=== PATIENT | female | born 1975 | race Two or more races ===

== ENCOUNTER 2017-11-22 14:51 | Emergency (ER) | payer MEDICAID ==
[~2017-11-22] VITALS: Ht 154.9 cm; Wt 72.6 kg
[2017-11-22] MEDS ORDERED: SYNTHROID125 MCG ORAL (15:02)
[2017-11-22 15:08] VITALS: BP 108/74
--- NOTE | 2017-11-22 15:13 | Emergency Room Report ---
History of Present Illness General Chief Complaint: Chest Pain Source: Patient Present Illness HPI Patient presents Complains of chest pain left upper chest Ongoing for the past 5 days Denies any exacerbating or ameliorating conditions Denies any vomiting or diarrhea denies any back or flank pain Patient reports that she had a cough and the flu for about one month however that has also improved Allergies: Coded Allergies: No Known Allergies (Unverified , 11/22/17) Patient History Past Medical History: see triage record Pertinent Family History: none Last Menstrual Period: 11/20/17 Reviewed Nursing Documentation: PMH: Agreed; PSxH: Agreed Nursing Documentation-PMH Past Medical History: No History, Except For Review of Systems All Other Systems: negative except mentioned in HPI Physical Exam Vital Signs Date Time Temp Pulse Resp B/P (MAP) Pulse Ox O2 Delivery O2 Flow Rate FiO2 11/22/17 15:00 98.1 91 18 108/74 95 Room Air 98.1 Sp02 EP Interpretation: reviewed, normal General Appearance: well appearing, no apparent distress Head: normocephalic, atraumatic Eyes: bilateral eye PERRL, bilateral eye EOMI ENT: hearing grossly normal, normal pharynx, TMs + canals normal, uvula midline Neck: full range of motion, supple, no meningismus, no bony tend Respiratory: lungs clear, normal breath sounds, no rhonchi, no respiratory distress, no retraction, no accessory muscle use Cardiovascular #1: normal peripheral pulses, regular rate, rhythm, no edema, no gallop, no JVD, no murmur Gastrointestinal: normal bowel sounds, non tender, soft, no mass, no organomegaly, non-distended, no guarding, no hernia, no pulsatile mass, no rebound Genitourinary: no CVA tenderness Musculoskeletal: normal inspection Neurologic: oriented x3, responsive, elevator supervisor III-XII nml as tested, motor strength/ tone normal, sensory intact Psychiatric: mood/affect normal Skin: normal color, no rash, warm/dry, palpation normal Lymphatic: normal inspection, no adenopathy Medical Decision Making Diagnostic Impression: Primary Impression: Chest pain ER Course Patient is a fairly complex patient with multiple differential to consideration including but not limited to cardiac cardiopulmonary and vascular emergencies Patient's blood work is normal imaging is appropriate EKG was also normal Patient's description and presentation does not sound necessarily cardiac after fairly extensive workup patient appears to be stable for close outpatient follow -up Labs Test 11/22/17 15:10 11/22/17 15:22 Urine HCG, Qualitative Negative (NEGATIVE) White Blood Count 9.1 K/UL (4.8-10.8) Red Blood Count 5.25 M/UL (4.20-5.40) Hemoglobin 12.9 G/DL (12.0-16.0) Hematocrit 38.9 % (37.0-47.0) Mean Corpuscular Volume 74 FL (80-99) Mean Corpuscular Hemoglobin 24.5 PG (27.0-31.0) Mean Corpuscular Hemoglobin Concent 33.1 G/DL (32.0-36.0) Red Cell Distribution Width 14.3 % (11.6-14.8) Platelet Count 544 K/UL (150-450) Mean Platelet Volume 6.4 FL (6.5-10.1) Neutrophils (%) (Auto) 62.8 % (45.0-75.0) Lymphocytes (%) (Auto) 30.6 % (20.0-45.0) Monocytes (%) (Auto) 4.0 % (1.0-10.0) Eosinophils (%) (Auto) 1.7 % (0.0-3.0) Basophils (%) (Auto) 1.0 % (0.0-2.0) Sodium Level 136 MMOL/L (136-145) Potassium Level 3.7 MMOL/L (3.5-5.1) Chloride Level 101 MMOL/L (98-107) Carbon Dioxide Level 29 MMOL/L (21-32) Anion Gap 6 mmol/L (5-15) Blood Urea Nitrogen 19 mg/dL (7-18) Creatinine 1.0 MG/DL (0.55-1.30) Estimat Glomerular Filtration Rate > 60 mL/min (>60) Glucose Level 109 MG/DL (74-106) Calcium Level 9.3 MG/DL (8.5-10.1) Total Bilirubin 0.3 MG/DL (0.2-1.0) Aspartate Amino Transf (AST/SGOT) 29 U/L (15-37) Alanine Aminotransferase (ALT/SGPT) 31 U/L (12-78) Alkaline Phosphatase 108 U/L (46-116) Total Creatine Kinase 322 U/L (26-308) Creatine Kinase MB 2.3 NG/ML (0.0-3.6) Creatine Kinase MB Relative Index 0.7 Troponin I 0.000 ng/mL (0.000-0.056) Total Protein 8.9 G/DL (6.4-8.2) Albumin 4.1 G/DL (3.4-5.0) Globulin 4.8 g/dL Albumin/Globulin Ratio 0.9 (1.0-2.7) Lipase 213 U/L (73-393) EKG Diagnostic Results Rate: normal Rhythm: NSR ST Segments: no acute changes Rhythm Strip Diag. Results EP Interpretation: yes Rate: 60 Rhythm: NSR, no PVC's, no ectopy Chest X-Ray Diagnostic Results Chest X-Ray Diagnostic Results : Chest X-Ray Ordered: Yes # of Views/Limited/Complete: 1 View Indication: Chest Pain EP Interpretation: Yes Interpretation: no consolidation, no effusion, no pneumothorax Impression: No acute disease Electronically Signed by: Cammy Purvis DO Last Vital Signs Date Time Temp Pulse Resp B/P (MAP) Pulse Ox O2 Delivery O2 Flow Rate FiO2 11/22/17 15:08 91 18 Room Air 11/22/17 15:08 98.1 108/74 95 98.1 Status: improved Disposition: HOME, SELF-CARE Condition: Improved Scripts Famotidine (PEPCID) 40 Mg Tablet 40 MG PO DAILY, #7 TAB 0 Refills Prov: Cammy Purvis DO 11/22/17 Additional Instructions: Patient is provided with the discharge instructions notified to follow up with primary doctor in the next 2-3 days otherwise return to the er with any worsening symptoms. Please note that this report is being documented using [employer] technology. This can lead to erroneous entry secondary to incorrect interpretation by the dictating instrument. Cammy Purvis DO Nov 22, 2017 15:13
[2017-11-22 15:41] LABS: EOSINOPHILS % (AUTO) 1.7 % (0.0-3.0); HEMATOCRIT 38.9 % (37.0-47.0); HEMOGLOBIN 12.9 G/DL (12.0-16.0); LYMPHOCYTES % (AUTO) 30.6 % (20.0-45.0); MEAN CORPUSCULAR VOLUME 74 FL (80-99); NEUTROPHILS % (AUTO) 62.8 % (45.0-75.0); PLATELET COUNT 544 K/UL (150-450); RED BLOOD COUNT 5.25 M/UL (4.20-5.40); RED CELL DISTRIBUTION WIDTH 14.3 % (11.6-14.8); WHITE BLOOD COUNT 9.1 K/UL (4.8-10.8)
[2017-11-22 15:47] LABS: ANION GAP 6 mmol/L (5-15); BLOOD UREA NITROGEN 19 mg/dL (7-18); CALCIUM 9.3 MG/DL (8.5-10.1); CARBON DIOXIDE 29 MMOL/L (21-32); CHLORIDE 101 MMOL/L (98-107); POTASSIUM 3.7 MMOL/L (3.5-5.1); SODIUM 136 MMOL/L (136-145)
--- NOTE | 2017-11-22 15:59 | Diagnostic Imaging Report ---
Indication: Chest pain Technique: One view of the chest Comparison: none Findings: Lungs and pleural spaces are clear. Heart size is normal Impression: No acute process
[2017-11-22 16:01] LABS: ALANINE AMINOTRANSFERASE 31 U/L (12-78); ALBUMIN 4.1 G/DL (3.4-5.0); ALBUMIN/GLOBULIN RATIO 0.9 (1.0-2.7); ALKALINE PHOSPHATASE 108 U/L (46-116); ASPARTATE AMINO TRANSFERASE 29 U/L (15-37); BILIRUBIN,TOTAL 0.3 MG/DL (0.2-1.0); CKMB 2.3 NG/ML (0.0-3.6); CREATINE KINASE 322 U/L (26-308)
[2017-11-22] MEDS ORDERED: PEPCID40 MG PO (16:19)
[2017-11-22] MEDS ORDERED: Dicyclomine HCl 10mg/5ml oral soln ORAL ONE (16:30)
[2017-11-22] MEDS ORDERED: Mylanta II UD 30ml ORAL ONE (16:30)
[2017-11-22 16:41] VITALS: BP 105/77
--- NOTE | 2017-11-23 14:54 | Cardiology Report ---
APPROVED REPORT EKG Measurement Heart [id number] Normal sinus rhythm Normal ECG
== END 2017-11-22 16:40 | disposition home or self-care (01) ==
LOC: EMR 16:02
DX: R07.9 Chest pain, unspecified (principal)
CPT/HCPCS: 36415; 71045; 80053; 81025; 82550; 82553; 83690; 84484; 85025; 93005; 99283

== ENCOUNTER 2018-10-10 13:00 | Emergency (ER) | payer MEDICAID ==
[~2018-10-10] VITALS: Ht 154.9 cm; Wt 88.5 kg
[~2018-10-10 13:00] MED LIST: PEPCID40 MG PO; SYNTHROID125 MCG ORAL
[2018-10-10 13:06] VITALS: BP 117/81
--- NOTE | 2018-10-10 13:27 | NUR ---
ED Nurse Note: PT. AAOX4. AMBULATED IN TO ER DUE TO SORETHROAT, CHILL, BILATERAL EARACHE SINCE YESTERDAY. ORAL TEMP OF 98.6F
--- NOTE | 2018-10-10 14:03 | Emergency Room Report ---
History of Present Illness General Chief Complaint: Sore Throat Source: Patient Present Illness HPI 43-year-old female presents to the emergency department complaining of 6 out of 10 in severity sore throat, cough, rhinorrhea, nasal congestion, and bilateral ear pain and intermittent subjective fevers and chills times one week. Patient reports that her daughter had similar symptoms. Patient states the Tylenol and Motrin at home are not helping. Denies recent travel. She denies taking this year's flu vaccination. Denies neck pain/stiffness. Denies CP, SOB, sudden onset CHRISTIE Allergies: Coded Allergies: No Known Allergies (Unverified , 10/10/18) Patient History Past Medical History: see triage record Past Surgical History: none Pertinent Family History: none Last Menstrual Period: CURRENTLY Now: No Reviewed Nursing Documentation: PMH: Agreed; PSxH: Agreed Nursing Documentation-PMH Past Medical History: No History, Except For Review of Systems All Other Systems: negative except mentioned in HPI Physical Exam Vital Signs Date Time Temp Pulse Resp B/P (MAP) Pulse Ox O2 Delivery O2 Flow Rate FiO2 10/10/18 13:06 98.6 101 15 117/81 97 Room Air Sp02 EP Interpretation: reviewed, normal General Appearance: no apparent distress, alert, GCS 15, non-toxic Head: normocephalic, atraumatic Eyes: bilateral eye normal inspection, bilateral eye PERRL ENT: hearing grossly normal, normal voice, TMs + canals normal, uvula midline, moist mucus membranes, nasal congestion, pharyngeal erythema, other - no exudates Neck: full range of motion Respiratory: chest non-tender, lungs clear, normal breath sounds, no respiratory distress, no wheezing, speaking full sentences Cardiovascular #1: regular rate, rhythm Musculoskeletal: back normal, gait/station normal, normal range of motion, non- tender Neurologic: alert, oriented x3, responsive, motor strength/tone normal, sensory intact, speech normal, grossly normal Psychiatric: judgement/insight normal Skin: normal color, no rash, warm/dry, well hydrated Lymphatic: no adenopathy Medical Decision Making PA Attestation Dr. Barrett is my supervising Physician whom patient management has been discussed with. Diagnostic Impression: Primary Impression: Viral upper respiratory tract infection with cough ER Course 43-year-old female presents to the emergency department complaining of 6 out of 10 in severity sore throat, cough, rhinorrhea, nasal congestion, and bilateral ear pain and intermittent subjective fevers and chills times one week. Patient reports that her daughter had similar symptoms. Patient states the Tylenol and Motrin at home are not helping. Denies recent travel. She denies taking this year's flu vaccination. Denies neck pain/stiffness. Denies CP, SOB, sudden onset CHRISTIE. Ddx considered but are not limited to URI, pneumonia, PE, strep pharyngitis, meningitis. Vital signs: Pt. is afebrile, the remaining VS are WNL H&PE are most consistent with URI- no meningeal signs, oropharynx is not involved, no evidence of bacterial infection at this time. ORDERS: none required at this time, the diagnosis is clinical ED INTERVENTIONS: None required at this time. --PT. EDUCATION: Discussed antibiotic resistance with inappropriate prescribing of antibiotics for viral illnesses. Discussed signs and symptoms to indicate viral illness versus bacterial illness. DISCHARGE: At this time pt. is stable for d/c to home. Will provide printed patient care instructions, and any necessary prescriptions. Care plan and follow up instructions have been discussed with the patient prior to discharge. Last Vital Signs Date Time Temp Pulse Resp B/P (MAP) Pulse Ox O2 Delivery O2 Flow Rate FiO2 10/10/18 13:06 98.6 101 15 117/81 97 Room Air Disposition: HOME, SELF-CARE Condition: Stable Referrals: NON PHYSICIAN (PCP) Patient Instructions: Upper Respiratory Infection, Adult, [id number] Additional Instructions: Take medications as directed. Follow up with a Primary Care Provider in 3-5 days, even if your symptoms have resolved. --Please review list of primary care clinics, if you do not already have a primary care provider Return sooner to ED if new symptoms occur, or current symptoms become worse. Do not drink alcohol, drive, or operate heavy machinery while taking Cough Syrup as this may cause drowsiness. - Please note that this Emergency Department Report was dictated using [employer] seaman technology software, occasionally this can lead to erroneous entry secondary to interpretation by the dictation equipment. Kathleen Gomez Oct 10, 2018 14:03
[2018-10-10] MEDS ORDERED: PROMETHAZINE-C118 M1 ORAL (14:06)
[2018-10-10] MEDS ORDERED: NAPROXEN500 M1 ORAL (14:06)
[2018-10-10] MEDS ORDERED: LIDOCAINE VISC100 ML ORAL (14:06)
[2018-10-10 14:08] VITALS: BP 145/75
--- NOTE | 2018-10-10 14:09 | NUR ---
ER DISCHARGE NOTE: Patient is cleared to be discharged per ERMD, pt is aox4, on room air, with stable vital signs. pt was given dc and prescription instructions, pt was able to verbalize understanding, pt id band removed. pt is able to ambulate with steady gait. pt took all belongings.
== END 2018-10-10 14:15 | disposition home or self-care (01) ==
LOC: EMR 13:45
DX: J06.9 Acute upper respiratory infection, unspecified (principal)
CPT/HCPCS: 99282

== ENCOUNTER 2019-04-13 12:52 | Emergency (ER) | payer MEDICAID, OTHER ==
[~2019-04-13] VITALS: Ht 157.5 cm; Wt 72.6 kg
[~2019-04-13 12:52] MED LIST changes: +LIDOCAINE VISC100 ML ORAL; +NAPROXEN500 M1 ORAL; +PROMETHAZINE-C118 M1 ORAL
[2019-04-13 13:14] VITALS: BP 113/75
--- NOTE | 2019-04-13 13:15 | NUR ---
ED Nurse Note: Patient walked in to ER from home due to Rt and Lt lower back pain 10/10 which started this morning. pt has ascites. Patient alert and oriented x4 and ambulatory. skin clean and intact. calm and cooperative. no acute distress noted at this time.
--- NOTE | 2019-04-13 13:26 | NUR ---
ED Nurse Note: per pt, she urinated right before coming here and cannot provide urine at this moment. pt drank 2 cups of water. medications will be given after test due to medications are at high risk for women.
[2019-04-13] MEDS ORDERED: Ketorolac 30mg Inj IM SCH (13:30)
[2019-04-13] MEDS ORDERED: Methocarbamol 500mg tab ORAL SCH (13:30)
[2019-04-13] MEDS ORDERED: NAPROXEN375 M2 ORAL (15:00)
[2019-04-13] MEDS ORDERED: CYCLOBENZAPRINE10 MG ORAL (15:02)
[2019-04-13 15:06] VITALS: BP 113/85
--- NOTE | 2019-04-13 15:07 | NUR ---
ED Nurse Note: Pt cleared by health care Provider for discharge. DC instructions/prescription was given and explained to pt and verbalized understanding of teachings. All medical deviecs such as ID band removed. Pt is AAO x4, ambulatory and left with all personal belongings.
--- NOTE | 2019-04-13 15:14 | Emergency Room Report ---
History of Present Illness General Chief Complaint: Back Pain-No Injury Source: Patient, Medical Record Present Illness HPI 43-year-old female complaining of low back pain x3 days, worsening. Pain is 8/10, radiating down left leg. Worse with movement. Denies fall or trauma. Denies fever, numbness, weakness. No bowel/ bladder incontinence. Taking Tylenol without improvement. Ambulatory. Denies history of cancer or IV drug use. Allergies: Coded Allergies: No Known Allergies (Unverified , 10/10/18) Patient History Past Medical History: other - Hypohyroidism Past Surgical History: none Social History: Denies: smoking, alcohol use, drug use Last Menstrual Period: 04/10/19 Nursing Documentation-[facility] Past Medical History: No History, Except For Review of Systems All Other Systems: negative except mentioned in HPI Physical Exam Vital Signs Date Time Temp Pulse Resp B/P (MAP) Pulse Ox O2 Delivery O2 Flow Rate FiO2 04/13/19 13:06 98.2 82 18 113/75 (88) 97 Room Air Sp02 EP Interpretation: reviewed, normal Respiratory: chest non-tender, lungs clear, normal breath sounds, speaking full sentences Cardiovascular #1: regular rate, rhythm, no edema Genitourinary: no CVA tenderness Musculoskeletal: other - lumbar: no spinal tenderness, paravertebral tenderness with muscle spasm Neurologic: alert, oriented x3, responsive, motor strength/tone normal, sensory intact, speech normal Skin: no rash, warm/dry Medical Decision Making PA Attestation This patient was seen under the direct supervision of Dr. Bellamy who directed all aspects of care and diagnostic interpretation. Reaction to Intervention: Improved Diagnostic Impression: Primary Impression: Back pain ER Course ED course HPI: 43-year-old female complaining of low back pain x3 days, worsening. Pain is 8/10, radiating down left leg. Worse with movement. Denies fall or trauma. Denies fever, numbness, weakness. No bowel/ bladder incontinence. Denies history of cancer or IV drug use Ddx: Sciatica, muscle strain, ligament strain, contusion, arthritis, discogenetic disease, non- musculoskeletal, and others. HPI & PE consistent with: Back pain, sciatica Orders/ Interventions: Patient well-appearing, afebrile. No red flag back pain symptoms. Urine negative. Educated with Toradol 30 mg IM and Robaxin p.o. in the ER, with symptomatic improvement. Disposition: Patient table for discharge home. Prescription for Naprosyn and Flexeril given. Modified physical activity. Apply warm compress to affected area. Followup with PCP in 2 days or return to ER if worsening symptoms, new symptoms or sudden change in condition. Please note that this Emergency Department Report was dictated using [employer]iagen[employer] education professor technology software, occasionally this can lead to erroneous entry secondary to interpretation by the dictation equipment. Laboratory Tests Test 04/13/19 14:00 Urine HCG, Qualitative Negative (NEGATIVE) Last Vital Signs Date Time Temp Pulse Resp B/P (MAP) Pulse Ox O2 Delivery O2 Flow Rate FiO2 04/13/19 15:06 98.0 71 18 113/85 98 Room Air Status: improved Disposition: HOME, SELF-CARE Condition: Improved Scripts Cyclobenzaprine Hcl* (FLEXERIL*) 10 Mg Tablet 10 MG ORAL BEDTIME for 7 Days, #7 TAB Prov: Jackeline Francisco 04/13/19 Naproxen* (NAPROXEN*) 375 Mg Tablet.dr 375 MG ORAL TWICE A DAY for 7 Days, #14 TAB Prov: Jackeline Francisco 04/13/19 Patient Instructions: Sciatica, Back Pain, Adult Additional Instructions: Take medication as Rx. Follow-up with PCP in 2 days or return from ER if worsening symptoms, new symptoms or sudden change in condition. Jackeline Francisco Apr 13, 2019 15:14
== END 2019-04-13 15:05 | disposition home or self-care (01) ==
LOC: EMR 13:25
DX: M54.5 Low back pain (principal)
CPT/HCPCS: 81025; 96372; 99283; J1885

== ENCOUNTER 2019-04-19 17:51 | Emergency (ER) | payer OTHER ==
[~2019-04-19] VITALS: Ht 160 cm; Wt 86.2 kg
[~2019-04-19 17:51] MED LIST changes: +CYCLOBENZAPRINE10 MG ORAL; +NAPROXEN375 M2 ORAL
--- NOTE | 2019-04-19 18:13 | NUR ---
ED Nurse Note: Patient sitting in corridoor stating she attended 6 days ago with back pain and that the pain has not relived she stated that the pain has not increased over 2 weeks but has been the same intensity. States yesterday she felt like she was shivering. She is able to raise the right lower leg without pain but is unable to raise the left lower leg without pain. No alterations in sensation between the little toe and the greater toe when assessed. Patient states that the medications she has been taking have not helped and she has taken them as prescribed. Pain aggravated by movement and also worse at night when laying down. The patient states that she tripped two weeks ago and this is when the pain started. She states that she was at work when she tripped and she states that she fell and hit the ground - she states that she tripped over a basket and she fell to the floor when she tripped.
--- NOTE | 2019-04-19 18:58 | NUR ---
ED Nurse Note:urine sent to labs
[2019-04-19 19:09] LABS: APPEARANCE,URINE CLEAR; BILIRUBIN, URINE NEGATIVE (NEGATIVE); COLOR,URINE PALE YELLOW; GLUCOSE, URINE (UA) NEGATIVE (NEGATIVE); KETONES,URINE NEGATIVE (NEGATIVE); LEUKOCYTE ESTERASE ,URINE 1+ (NEGATIVE); NITRITE,URINE NEGATIVE (NEGATIVE); PH,URINE 7 (4.5-8.0); PROTEIN,URINE 2+ (NEGATIVE); UROBILINOGEN,URINE NORMAL MG/DL (0.0-1.0)
[2019-04-19] MEDS ORDERED: traMADol 50mg tab ORAL ONE (19:15)
[2019-04-19] MEDS ORDERED: TRAMADOL HCL50 MG ORAL (19:38)
--- NOTE | 2019-04-19 19:38 | Emergency Room Report ---
History of Present Illness General Chief Complaint: Back Pain-No Injury Source: Patient Present Illness HPI 43 YO Female presents to the ED c/o 03/18 in severity Left sided LBP x 3 weeks. Pt. was evaluated here and rx'c Flexeril and Naproxen which has not relieved her symptoms. She reports acute onset of her pain with certain bending positions and intermittent radiation down the posterior left thigh. Patient denies appreciable trauma or fall. Patient denies recent spinal procedures, history of cancer or night sweats. Patient denies fevers or chills. Denies rashes. Patient states it is difficult to find a position of comfort at night. Patient states she has not followed up with her primary care doctor regarding her symptoms. Denies numbness tingling or loss of sensation or gross motor movements of the extremities, incontinence of bowel or bladder. Denies CP, Palpitations, LOC, AMS, dizziness, Changes in Vision, weakness or a sudden severe headache. Allergies: Coded Allergies: No Known Allergies (Unverified , 10/10/18) Patient History Past Medical History: see triage record Past Surgical History: none Pertinent Family History: none Last Menstrual Period: 04/12/19 Now: No Reviewed Nursing Documentation: PMH: Agreed; PSxH: Agreed Nursing Documentation-PMH Past Medical History: No History, Except For Review of Systems All Other Systems: negative except mentioned in HPI Physical Exam Vital Signs Date Time Temp Pulse Resp B/P (MAP) Pulse Ox O2 Delivery O2 Flow Rate FiO2 04/19/19 17:57 98.1 89 18 109/78 (88) 100 Room Air Sp02 EP Interpretation: reviewed, normal General Appearance: no apparent distress, alert, GCS 15, non-toxic Head: normocephalic, atraumatic Eyes: bilateral eye normal inspection, bilateral eye PERRL ENT: hearing grossly normal, normal voice Neck: full range of motion Respiratory: lungs clear, normal breath sounds, speaking full sentences Cardiovascular #1: regular rate, rhythm Gastrointestinal: non tender, soft Genitourinary: normal inspection, no CVA tenderness Musculoskeletal: gait/station normal, normal range of motion, tender - Left Lumbar paraspinal and upper gluteal TTP, FROM with exacerbation of pain temporarily in certain flexed positions, no LE weakness, pt. is NVI, no erythema , midline bony ttp, step-offs or obvious deformity. Neurologic: alert, oriented x3, responsive, motor strength/tone normal, sensory intact, speech normal, grossly normal Psychiatric: judgement/insight normal Skin: no rash Lymphatic: no adenopathy Medical Decision Making PA Attestation Dr. Chopra is my supervising Physician whom patient management has been discussed with. Diagnostic Impression: Primary Impression: Lumbar back pain with radiculopathy affecting left lower extremity ER Course 43 YO Female presents to the ED c/o 03/18 in severity Left sided LBP x 3 weeks. Pt. was evaluated here and rx'c Flexeril and Naproxen which has not relieved her symptoms. She reports acute onset of her pain with certain bending positions and intermittent radiation down the posterior left thigh. Patient denies appreciable trauma or fall. Patient denies recent spinal procedures, history of cancer or night sweats. Patient denies fevers or chills. Denies rashes. Patient states it is difficult to find a position of comfort at night. Patient states she has not followed up with her primary care doctor regarding her symptoms. Denies numbness tingling or loss of sensation or gross motor movements of the extremities, incontinence of bowel or bladder. Denies CP, Palpitations, LOC, AMS, dizziness, Changes in Vision, weakness or a sudden severe headache. Ddx considered but are not limited to Fracture, dislocation, contusion, epidural abscess, Sprain/Strain/Spasm Vital signs: are WNL, pt. is afebrile H&PE are most consistent with sciatica, no evidence to suggest acute spinal cord injury/impingement, will check for UTI. No obvious signs of infection. Pt. unable to tolerate straight leg raise with left leg. No saddle anesthesia ORDERS: X-ray not required at this time, no spinous process tenderness -UA: WNL ED INTERVENTIONS: -Tramadol PO -I do not identify an emergent condition at this time. With current presentation , pt. is stable for close outpatient follow up and conservative treatment. D/ w pt. to return promptly to ED with worsening or new symptoms.- Pt. verbalizes' understanding and agreement with proposed treatment plan. DISCHARGE: At this time pt. is stable for d/c to home. Will provide printed patient care instructions, and any necessary prescriptions. Care plan and follow up instructions have been discussed with the patient prior to discharge. Labs Test 04/19/19 18:50 Urine Color Pale yellow Urine Appearance Clear Urine pH 7 (4.5-8.0) Urine Specific [place] 1.005 (1.005-1.035) Urine Protein 2+ (NEGATIVE) Urine Glucose (UA) Negative (NEGATIVE) Urine Ketones Negative (NEGATIVE) Urine Blood 1+ (NEGATIVE) Urine Nitrite Negative (NEGATIVE) Urine Bilirubin Negative (NEGATIVE) Urine Urobilinogen Normal MG/DL (0.0-1.0) Urine Leukocyte Esterase 1+ (NEGATIVE) Urine RBC 0-2 /HPF (0 - 2) Urine WBC 2-4 /HPF (0 - 2) Urine Squamous Epithelial Cells Few /LPF (NONE/OCC) Urine Bacteria Few /HPF (NONE) Last Vital Signs Date Time Temp Pulse Resp B/P (MAP) Pulse Ox O2 Delivery O2 Flow Rate FiO2 04/19/19 17:57 98.1 89 18 109/78 (88) 100 Room Air Disposition: HOME, SELF-CARE Condition: Stable Scripts Tramadol Hcl* (ULTRAM*) 50 Mg Tablet 50 MG ORAL Q6H PRN for For Pain, #12 TAB 0 Refills Prov: Kathleen Gomez 04/19/19 Departure Forms: Return to Work Return to Work Date: Apr 23, 2019 Work Restrictions: No Heavy Lifting, No Prolonged Standing Other Restrictions: light duty. May return Sooner if Symptoms have resolved. Return to Full Activity: Apr 26, 2019 Patient Instructions: Back Pain, Adult, Sciatica Additional Instructions: Take medications as directed. Follow up with a Primary Care Provider or an STAMP PRESS OPERATOR in 3-5 days, even if your symptoms have resolved. MRI is recommended --Please review list of primary care clinics, if you do not already have a primary care provider who can give you an Orthopedic Referral. Return sooner to ED if new symptoms occur, or current symptoms become worse. Do not drink alcohol, drive, or operate heavy machinery while taking Tramadol as this may cause drowsiness. - Please note that this Emergency Department Report was dictated using [employer]ol[employer] folder technology software, occasionally this can lead to erroneous entry secondary to interpretation by the dictation equipment. Kathleen Gomez Apr 19, 2019 19:38
[2019-04-19 19:45] VITALS: BP 114/80
--- NOTE | 2019-04-19 19:45 | NUR ---
ER Nurse Note: Pt seen, treated, medically cleared for discharge by ERMD. Discharge instuctions and prescriptions given with repeat verbalization by pt. Emphasized to follow up with primay care provider; take whole course of medication. Explained each medication. All orders completed per ERMD orders. Pt a&ox4, VSS, no signs of distress. ID band removed. All questions answered per pt's questions. Pt left with all belongings, left with own transportation.
== END 2019-04-19 19:45 | disposition home or self-care (01) ==
LOC: EMR 19:25
DX: M54.5 Low back pain (principal); M54.10 Radiculopathy, site unspecified
CPT/HCPCS: 81003; Z7502; 99283